=== PATIENT | female | born 1950 | race Caucasian/White ===

== ENCOUNTER 2021-05-21 18:49 | Emergency (ER) | payer MEDICARE, OTHER ==
[2021-05-21 19:00] VITALS: PULSE 103
[2021-05-21] MEDS ORDERED: Silver Sulfadiazine 1% Crm 50 GM Tube TOP STA (19:25)
[2021-05-21] MEDS ORDERED: traMADol 50 MG Tab PO ONE (19:44)
== END 2021-05-21 19:55 | disposition home or self-care (01) ==
LOC: JD.ED 18:49
DX: T23.102A Burn of first degree of left hand, unspecified site, initial encounter (principal); E78.00 Pure hypercholesterolemia, unspecified; I10 Essential (primary) hypertension; F17.210 Nicotine dependence, cigarettes, uncomplicated; Z79.899 Other long term (current) drug therapy; X19.XXXA Contact with other heat and hot substances, initial encounter
CPT/HCPCS: 16020; 99283; A9270